=== PATIENT | female | born 1945 | race African-American/Black ===

== ENCOUNTER 2019-09-13 13:43 | Emergency (ER) | payer OTHER ==
[~2019-09-13] VITALS: Ht 162.6 cm; Wt 95.3 kg
[2019-09-13 14:52] VITALS: BP 170/80
== END 2019-09-13 16:15 | disposition home or self-care (01) ==
LOC: ER 13:43
DX: L02.421 Furuncle of right axilla (principal); N39.0 Urinary tract infection, site not specified; B35.1 Tinea unguium
CPT/HCPCS: 81002